=== PATIENT | male | born 1990 ===

== ENCOUNTER 2022-08-16 14:44 | Emergency (ER) | payer OTHER, SELFPAY ==
--- NOTE | 2022-08-16 14:46 | ED_ITS ---
HPI - General Adult General Chief complaint: Dental/Oral <Nanette Christianson CNP - Last Filed: 08/16/22 14:51> Stated complaint: toothache, ear pain <Nanette Christianson CNP - Last Filed: 08/16/22 14:51> Time Seen by Provider: 08/16/22 15:26 <Nanette Christianson CNP - Last Filed: 08/16/22 14:51> Source: patient <Kiara Riley NP - Last Filed: 08/16/22 15:58> Mode of arrival: ambulatory <Kiara Riley NP - Last Filed: 08/16/22 15:58> Limitations: language barrier <Kiara Riley NP - Last Filed: 08/16/22 15:58> History of Present Illness HPI narrative: 32-year-old male with no significant past medical history presents to [facility] emergency department with complaints of right tooth pain radiating into his right ear for over a month which he has been managing with over the counter analgesics. He reports pain increases with chewing. He states he has not seen a dentist for his tooth pain as he does not have dental insurance. He reports pain has not changed from the inception of his pain. He states that he He denies any throat swelling, hoarse voice, difficulty swallowing, foul taste in his mouth, fever or chills. <Kiara Riley NP - Last Filed: 08/16/22 15:58> Onset (ago): month(s) (1) <Kiara Riley NP - Last Filed: 08/16/22 15:58> Location: mouth <Kiara Riley NP - Last Filed: 08/16/22 15:58> Radiation: other (right ear) <Kiara Riley NP - Last Filed: 08/16/22 15:58> Severity: moderate <Kiara Riley NP - Last Filed: 08/16/22 15:58> Severity scale (1-10): 5 <Kiara Riley NP - Last Filed: 08/16/22 15:58> Quality: aching, dull and constant <ANABELA Pizarro Last Filed: 08/16/22 15:58> Pain Consistency: constant <Kiara Riley NP - Last Filed: 08/16/22 15:58> Relieving factors: medication <Kiara Riley NP - Last Filed: 08/16/22 15:58> Exacerbating factors: eating <Kiara Riley NP - Last Filed: 08/16/22 15:58> Associated symptoms: denies other symptoms <Kiara Riley NP - Last Filed: 08/16/22 15:58> Treatments prior to arrival: NSAID <Kiara Riley NP - Last Filed: 08/16/22 15:58> Related Data Allergies/adverse reactions: Allergies Allergy/AdvReac Type Severity Reaction Status Date / Time No Known Allergies Allergy Verified 08/16/22 14:50 <Nanette Christianson CNP - Last Filed: 08/16/22 14:51> Review of Systems Review of Systems: In addition to documented HPI above, the additional ROS was obtained: Constitutional: No Weight loss, No Fever, No Chills ENT/Mouth: No Ear Pain, No Nasal Congestion, No Sinus Pain, No Hoarseness, No sore throat, No Rhinorrhea, No Swallowing Difficulty Cardiovascular: No Chest Pain, No SOB Respiratory: No Cough, No Sputum, No Wheezing Gastrointestinal: No Nausea, No Vomiting, No Diarrhea, No Constipation, No Abdominal pain Genitourinary: No Dysuria, No Urinary Frequency, No Hematuria, No Urinary Incontinence/retention, No Urgency, No Flank Pain Musculoskeletal: No joint pain, No Myalgias, No Joint Swelling Skin: No Skin Lesions, No rash Neuro: No Weakness, No Numbness, No Paresthesias <iKara Riley NP - Last Filed: 08/16/22 15:58> Yes all other systems are reviewed and are negative <Kiara Riley NP - Last Filed: 08/16/22 15:58> [facility] Social History Social History: Social History Advance Directives: No Advance Directives Information Provided: No <Nanette Christianson CNP - Last Filed: 08/16/22 14:51> Physical Exam ED Vital Signs: Vital Signs - 24 hr 08/16/22 14:47 Temperature 97.0 F Pulse Rate 88 Respiratory Rate 18 Blood Pressure 127/83 Pulse Oximetry 99 Oxygen Delivery Method Room Air BMI result Body Mass Index 28.7 <Nanette Christianson, [employer] - Last Filed: 08/16/22 14:51> Vital Signs - 24 hr 08/16/22 14:47 Temperature 97.0 F Pulse Rate 88 Respiratory Rate 18 Blood Pressure 127/83 Pulse Oximetry 99 Oxygen Delivery Method Room Air BMI result Body Mass Index 28.7 <Kiara Riley NP - Last Filed: 08/16/22 15:58> Nursing notes and vital signs reviewed. GENERAL APPEARANCE: A&0 x 4, generally well appearing, no acute distress HENMT: Normal to inspection, atraumatic, face symmetrical. Normal external ears, nose, and oropharynx clear. Normal bilateral TMs. Dentition normal without obvious caries. No trismus EYE: PERRLA, EOM intact, structures appear normal NECK: Supple without lymphadenopathy. No stiffness or restricted ROM. CHEST: Normal to inspection HEART: Normal rate and regular rhythm, normal S1/S2, no M/R/G LUNGS: LS CTA, moving air well. Able to speak in complete sentences. No crackles, wheezes, or rhonchi auscultated ABDOMEN: Soft, nontender, nondistended. Normal bowel sounds noted BACK: No CVAT, no obvious deformity EXTREMITIES: Moving all extremities without difficulty. No cyanosis, clubbing, or edema. Normal capillary refill. NEUROLOGICAL: Alert and oriented, moving all 4 extremities with equal strength. CN not formally tested but appearing grossly intact. Observed to ambulate with normal gait. Cognition normal SKIN: Warm and dry without any lesions, rash, or visible sores PSYCH: Cooperative, normal affect, normal thought process <Kiara Riley NP - Last Filed: 08/16/22 15:58> Course Course Course Narrative: This is an RME: Additional HPI, ROS, PE not included below will be deferred to primary provider. Patient is a 32-year-old male presents emergency department for evaluation of right lower toothache, cheek swelling, and ear pain. Onset of symptoms 1 month ago. Was taking advil with minimal improvement. Does not have a dentist, stating no health insurance. Denies fevers, chills, drainage from the right ear, dysphagia, cough, chest pain, shortness of breath, neck pain. Plan: labs, CT soft tissue neck <Nanette Christianson CNP - Last Filed: 08/16/22 14:51> Medical Decision Making Medical Decision Making MDM Narrative: 32-year-old male with no significant past medical history presents to the emergency department with complaints of right tooth pain radiating into his right ear for over a month which he has been managing with over the counter analgesics. On exam, dentition normal without caries, no fluctuance noted at the gum line or in right cheek. No lymphadenopathy noted. Bilateral TMs normal. Pt recommended to follow up with a dentist for further evaluation of his toothache. No redness or drainage noted in mouth, posterior oropharynx normal, no tonsilar exudate. No sign of infection. Normal neck ROM without difficulty swallowing, clear voice. Pt educated that he does not appear infectious on physical exam at this time. Pt left ED prior to CT scan and discharge <ANABELA Pizarro ast Filed: 08/16/22 15:58> Lab Data Result Diagrams: 08/16/22 14:58 08/16/22 14:58 <Nanette Christianson CNP - Last Filed: 08/16/22 14:51> Labs: Lab Results 08/16/22 08/16/22 Range/Units 14:58 14:58 WBC 6.6 (4.8-10.8) X10*3/uL RBC 5.64 (4.60-5.80) X10*6/uL Hgb 16.7 (14.0-18.0) g/dl Hct 48.3 (42.0-52.0) % MCV 85.6 (80.0-98.0) fL MCH 29.6 (27.0-33.0) pg MCHC 34.6 (31.0-36.0) g/dl RDW 12.2 (11.0-16.0) % Plt Count 328 (160-400) X10*3/uL MPV 8.7 L (9.4-12.4) fL Immature Gran % (Auto) 0.2 (0.0-0.4) % Neut % (Auto) 53.5 (45-73) % Lymph % (Auto) 35.6 (20-40) % [place] % (Auto) 8.6 (2-11) % Eos % (Auto) 1.2 (0-4) % Baso % (Auto) 0.9 (0-2) % Lymph # (Auto) 2.4 (1.2-4.9) X10*3/uL [place] # (Auto) 0.6 (0.1-1.2) X10*3/uL Eos # (Auto) 0.1 (0.0-0.4) X10*3/uL Baso # (Auto) 0.1 (0.0-0.2) X10*3/uL Abs Immat Gran (auto) 0.01 (0.00-0.03) X10*3/uL Absolute Neuts (auto) 3.5 (2.0-8.3) x10*3/uL Absolute Nucleated RBC 0.000 (0.0-0.012) X10*3/uL Nucleated RBC % (auto) 0.0 (0.0-0.2) /100WBC Sodium 141 (135-145) mmol/L Potassium 4.2 (3.3-5.1) mmol/L Chloride 105 (96-108) mmol/L Carbon Dioxide 27 (22-29) mmol/L Anion Gap 13 (12-20) BUN 14 (9-16) mg/dL Creatinine 1.29 (0.5-1.4) mg/dL Estim Creat Clear Calc 92.2 Estimated GFR > 60 Random Glucose 89 (60-115) mg/dL Calcium 9.6 (8.4-10.2) mg/dL Total Bilirubin 0.7 (0.0-1.0) mg/dL AST 19 (5-37) U/L ALT 25 (0-40) U/L Alkaline Phosphatase 79 (39-117) U/L Total Protein 7.2 (6.5-8.0) g/dL Albumin 4.1 (3.5-5.0) g/dL <Nanette Christianson, MARQUIS - Last Filed: 08/16/22 14:51> Lab Results 01/22/23 01/22/23 Range/Units 14:58 14:58 WBC 6.6 (4.8-10.8) X10*3/uL RBC 5.64 (4.60-5.80) X10*6/uL Hgb 16.7 (14.0-18.0) g/dl Hct 48.3 (42.0-52.0) % MCV 85.6 (80.0-98.0) fL MCH 29.6 (27.0-33.0) pg MCHC 34.6 (31.0-36.0) g/dl RDW 12.2 (11.0-16.0) % Plt Count 328 (160-400) X10*3/uL MPV 8.7 L (9.4-12.4) fL Immature Gran % (Auto) 0.2 (0.0-0.4) % Neut % (Auto) 53.5 (45-73) % Lymph % (Auto) 35.6 (20-40) % [place] % (Auto) 8.6 (2-11) % Eos % (Auto) 1.2 (0-4) % Baso % (Auto) 0.9 (0-2) % Lymph # (Auto) 2.4 (1.2-4.9) X10*3/uL [place] # (Auto) 0.6 (0.1-1.2) X10*3/uL Eos # (Auto) 0.1 (0.0-0.4) X10*3/uL Baso # (Auto) 0.1 (0.0-0.2) X10*3/uL Abs Immat Gran (auto) 0.01 (0.00-0.03) X10*3/uL Absolute Neuts (auto) 3.5 (2.0-8.3) x10*3/uL Absolute Nucleated RBC 0.000 (0.0-0.012) X10*3/uL Nucleated RBC % (auto) 0.0 (0.0-0.2) /100WBC Sodium 141 (135-145) mmol/L Potassium 4.2 (3.3-5.1) mmol/L Chloride 105 (96-108) mmol/L Carbon Dioxide 27 (22-29) mmol/L Anion Gap 13 (12-20) BUN 14 (9-16) mg/dL Creatinine 1.29 (0.5-1.4) mg/dL Estim Creat Clear Calc 92.2 Estimated GFR > 60 Random Glucose 89 (60-115) mg/dL Calcium 9.6 (8.4-10.2) mg/dL Total Bilirubin 0.7 (0.0-1.0) mg/dL AST 19 (5-37) U/L ALT 25 (0-40) U/L Alkaline Phosphatase 79 (39-117) U/L Total Protein 7.2 (6.5-8.0) g/dL Albumin 4.1 (3.5-5.0) g/dL <Kiara Riley NP - Last Filed: 08/16/22 15:58> Discharge Plan Discharge Clinical Impression: Toothache <Nanette Christianson CNP - Last Filed: 08/16/22 14:51> Patient Disposition: Elopement <Nanette Christianson CNP - Last Filed: 08/16/22 14:51> Interventions: ED Discharge Assessment Last Done: 08/16/22 15:50 <Nanette Christianson CNP - Last Filed: 08/16/22 14:51> Discharge Date/Time: 08/16/22 15:51 <Nanette Christianson CNP - Last Filed: 08/16/22 14:51>
[2022-08-16 14:47] VITALS: BP 127/83; PULSE 88; RESP 18; TEMP 36.1; O2SAT 99; BMI 28.7
[2022-08-16 15:04] LABS: MANUAL DIFF FLAG NO
[2022-08-16 15:06] LABS: Basophils Absolute Auto 0.1 X10*3/uL (0.0-0.2); Basophils Percent Auto 0.9 % (0-2); Eosinophils Absolute Auto 0.1 X10*3/uL (0.0-0.4); Eosinophils Percent Auto 1.2 % (0-4); Hematocrit 48.3 % (42.0-52.0); Hemoglobin 16.7 g/dl (14.0-18.0); Imm Gran Abs Auto 0.01 X10*3/uL (0.00-0.03); Imm Gran Pct Auto 0.2 % (0.0-0.4); Lymphocytes Absolute Auto 2.4 X10*3/uL (1.2-4.9); Lymphocytes Percent Auto 35.6 % (20-40); Mean Corpuscular HGB Conc 34.6 g/dl (31.0-36.0); Mean Corpuscular Hemoglobin 29.6 pg (27.0-33.0); Mean Corpuscular Volume 85.6 fL (80.0-98.0); Mean Platelet Volume 8.7 fL (9.4-12.4); Monocytes Absolute Auto 0.6 X10*3/uL (0.1-1.2); Monocytes Percent Auto 8.6 % (2-11); Neutrophils Absolute Auto 3.5 x10*3/uL (2.0-8.3); Neutrophils Percent Auto 53.5 % (45-73); Platelet Count 328 X10*3/uL (160-400); Red Blood Count 5.64 X10*6/uL (4.60-5.80); Red Cell Distribution Width 12.2 % (11.0-16.0); White Blood Count 6.6 X10*3/uL (4.8-10.8)
[2022-08-16 15:20] LABS: Alanine Aminotransferase 25 U/L (0-40); Albumin Level 4.1 g/dL (3.5-5.0); Alkaline Phosphatase 79 U/L (39-117); Anion Gap 13 (12-20); Aspartate Amino Transferase 19 U/L (5-37); Bilirubin Total 0.7 mg/dL (0.0-1.0); Blood Urea Nitrogen 14 mg/dL (9-16); Calcium 9.6 mg/dL (8.4-10.2); Carbon Dioxide 27 mmol/L (22-29); Chloride 105 mmol/L (96-108); Creatinine Clr Calc Pharmacy 92.2; Estimated Glomerular Filt Rate > 60; Glucose Random 89 mg/dL (60-115); Potassium 4.2 mmol/L (3.3-5.1); Sodium 141 mmol/L (135-145); Total Protein 7.2 g/dL (6.5-8.0)
== END 2022-08-16 15:51 | disposition left against medical advice (07) ==
PROVIDERS: Nurse Practitioner Family; Emergency Provider Emergency Medicine
DX: K08.89 Other specified disorders of teeth and supporting structures (principal); H92.01 Otalgia, right ear; Z79.899 Other long term (current) drug therapy
CPT/HCPCS: 36415; 80053; 85025; 99282

== ENCOUNTER 2022-12-09 11:31 | Emergency (ER) | payer OTHER, SELFPAY ==
--- NOTE | 2022-12-09 | ECG_ITS ---
Test Reason : CHEST PAIN Blood Pressure : / mmHG Vent. Rate : 105 BPM Atrial Rate : 105 BPM P-R Int : 124 ms QRS Dur : 086 ms QT Int : 314 ms P-R-T Axes : 051 046 024 degrees QTc Int : 415 ms Sinus tachycardia Otherwise normal ECG No previous ECGs available Referred By: Generic ED Physician Electronically Signed By:Art Boss
--- NOTE | ~2022-12-09 | XR_ITS ---
EXAMINATION: XR CHEST CLINICAL INFORMATION: Shortness of breath and cough COMPARISON: None available. TECHNIQUE: 2 views of the chest were obtained. FINDINGS: No significant abnormality is noted involving the heart, lungs, mediastinum, bony thorax or soft tissues. XR/XR chest 2V IMPRESSION: No acute disease.
[2022-12-09 11:41] VITALS: BP 129/93; PULSE 104; RESP 18; TEMP 37.4; O2SAT 99; BMI 28.9
--- NOTE | 2022-12-09 11:42 | ED_ITS ---
HPI - SOB/Dyspnea General Chief Complaint: Dyspnea <KELLEE Orellana - Last Filed: 12/09/22 11:49> Stated Complaint: SOB/ Chest pain <KELLEE Orellana - Last Filed: 12/09/22 11:49> Time Seen by Provider: 12/09/22 12:30 <KELLEE Orellana - Last Filed: 12/09/22 11:49> Source: patient and family <Ta Farris - Last Filed: 12/09/22 14:02> Limitations: no limitations <Ta Farris - Last Filed: 12/09/22 14:02> History of Present Illness HPI Narrative: 32-year-old male with 3 day history of cough congestion and chest wall pain after coughing. Positive sick contacts at home from kids. No recent travel history. Patient denies tobacco history and takes no prescribed medications at this time. Cough is productive for some clear sputum. Symptoms have been worsening over the past 24 hours. No similar episodes in the past. Patient also has a slight sore throat with swallowing. No other complaints at this time. <Ta Farris - Last Filed: 12/09/22 14:02> Related Data Allergies/Adverse Reactions: Allergies Allergy/AdvReac Type Severity Reaction Status Date / Time No Known Allergies Allergy Verified 12/09/22 11:45 <KELLEE Orellana - Last Filed: 12/09/22 11:49> Review of Systems Review of Systems: General: Question fever, no chills Ophthalmology: No vision changes, no discharge ENT: Positive sore throat no ear pain Cardiovascular: Chest wall pain status post coughing no peripheral edema positive shortness of breath with cough Respiratory: Positive shortness of breath, cough, sputum production Muscle skeletal: No malaise, no back pain, no neck pain, no extremity pain GI: No abdominal pain: no nausea vomiting, no diarrhea Psychiatric: No depression, no suicidal ideation, no homicidal ideation Skin: No rash Hematology: No bleeding, no bruising <Ta Farris - Last Filed: 12/09/22 14:02> PMFSH Past Medical History Source: obtained from family <Ta Farris - Last Filed: 12/09/22 14:02> Social History Social History: Social History Advance Directives: No Advance Directives Information Provided: No <KELLEE Orellana - Last Filed: 12/09/22 11:49> Physical Exam Vital Signs: Vital Signs: Last Vital Signs Temp 99.3 F 12/09/22 11:41 Pulse 104 H 12/09/22 11:41 Resp 18 12/09/22 11:41 BP 129/93 H 12/09/22 11:41 Pulse Ox 99 12/09/22 11:41 O2 Del Method Room Air 12/09/22 11:41 BMI result Body Mass Index 28.9 <KELLEE Orellana - Last Filed: 12/09/22 11:49> Vital Signs: Last Vital Signs Temp 99.3 F 12/09/22 11:41 Pulse 104 H 12/09/22 11:41 Resp 18 12/09/22 11:41 BP 129/93 H 12/09/22 11:41 Pulse Ox 99 12/09/22 11:41 O2 Del Method Room Air 12/09/22 11:41 BMI result Body Mass Index 28.9 <Ta Farris - Last Filed: 12/09/22 14:02> General appearance: Awake, alert, cooperative, in no acute distress Skin: Warm, dry, no rash Eyes: PERRL, EOMI, no icterus ENT: Slight erythema noted uvula midline no peritonsillar abscess or exudate noted Neck: Soft supple full range of motion Pulmonary: Breath sounds coarse bilaterally Cardiovascular: Regular rate and rhythm, no murmurs and rubs Abdomen: Soft nontender, no rebound or guarding, positive bowel sounds Extremities: No deformity, nontender, no peripheral edema noted Neuro: Alert oriented x3, no focal deficit Psych: Normal affect <Ta Farris - Last Filed: 12/09/22 14:02> Course Course Course Narrative: RME 32yo [place]ian speaking male with SOB, chest pain, headache, fevers for the last three days. Chest pain is worse with coughing. His little kids at home were sick with a cough recently. Slightly tachycardic in triage with low grade fever, but sats high 90s, and lungs are clear on exam. Plan: EKG already done, will get chest x-ray and viral swabs. <KELLEE Orellana - Last Filed: 12/09/22 11:49> Medications Administered Discontinued Medications Generic Name Dose Route Start Last Admin Trade Name Freq PRN Reason Stop Dose Admin Benzonatate 100 mg 12/09/22 12:34 12/09/22 12:43 Benzonatate 100 Mg Capsule PO 12/09/22 12:35 100 mg ONCE ONE Administration Ibuprofen 600 mg 12/09/22 12:34 12/09/22 12:43 Ibuprofen 600 Mg Tablet PO 12/09/22 12:35 600 mg ONCE ONE Administration Prednisone 40 mg 12/09/22 12:34 12/09/22 12:43 Prednisone 20 Mg Tablet PO 12/09/22 12:35 40 mg ONCE ONE Administration <KELLEE Orellana - Last Filed: 12/09/22 11:49> Medications Administered Discontinued Medications Generic Name Dose Route Start Last Admin Trade Name Freq PRN Reason Stop Dose Admin Benzonatate 100 mg 12/09/22 12:34 12/09/22 12:43 Benzonatate 100 Mg Capsule PO 12/09/22 12:35 100 mg ONCE ONE Administration Ibuprofen 600 mg 12/09/22 12:34 12/09/22 12:43 Ibuprofen 600 Mg Tablet PO 12/09/22 12:35 600 mg ONCE ONE Administration Prednisone 40 mg 12/09/22 12:34 12/09/22 12:43 Prednisone 20 Mg Tablet PO 12/09/22 12:35 40 mg ONCE ONE Administration <Ta Farris - Last Filed: 12/09/22 14:02> Medical Decision Making Medical Decision Making MDM Narrative: Pneumonia Acute bronchitis Viral URI COVID-19 Reactive airway disease Pharyngitis Vital signs are otherwise stable 32-year-old male with positive sick contacts at home chest x-ray respiratory swab is pending at this time. ECG performed in triage and a rate of 105 normal sinus rhythm no ST elevation 14:00 chest chest x-rays negative patient tested positive for influenza B symptoms have been greater than 3 days symptomatic relief only at this time <Ta Winchester Last Filed: 12/09/22 14:02> Lab Data Labs: Lab Results 12/09/22 Range/Units 12:01 Influenza Type A (PCR) NEGATIVE (Negative) Influenza Type B (PCR) POSITIVE A (Negative) RSV RNA Qual (PCR) NEGATIVE (Negative) SARS-CoV-2 RNA (RT-PCR) NEGATIVE (Negative) <KELLEE Orellana - Last Filed: 12/09/22 11:49> Lab Results 12/09/22 Range/Units 12:01 Influenza Type A (PCR) NEGATIVE (Negative) Influenza Type B (PCR) POSITIVE A (Negative) RSV RNA Qual (PCR) NEGATIVE (Negative) SARS-CoV-2 RNA (RT-PCR) NEGATIVE (Negative) <Ta Farris - Last Filed: 12/09/22 14:02> Radiology Impression Discussion of test interpretation with radiology: I have reviewed the radiologist's reading. <Ta Farris - Last Filed: 12/09/22 14:02> Radiologist Impression: [address] [address] XRay Report Signed Patient: Charanjit Payne MR#: [id number] : 1990 Acct:[id number] Age/Sex: 32 / M ADM Date: 12/09/22 Loc: .ED Attending Dr: Ordering Physician: Kaitlynn Naik Date of Service: 12/09/22 Procedure(s): XR chest 2V Accession Number(s): [id number] cc: Kaitlynn Naik~ EXAMINATION: XR CHEST CLINICAL INFORMATION: Shortness of breath and cough COMPARISON: None available. TECHNIQUE: 2 views of the chest were obtained. FINDINGS: No significant abnormality is noted involving the heart, lungs, mediastinum, bony thorax or soft tissues. XR/XR chest 2V IMPRESSION: No acute disease. Dictated By: Yoseph Valente MD Signed By: <Electronically signed by Yoseph Valente MD in [place]> 12/09/22 1343 DD/ 1210 TD/TT:? Elevator Technician: DANNI <Ta Farris - Last Filed: 12/09/22 14:02> Discharge Plan Discharge Clinical Impression: Influenza B <KELLEE Orellana - Last Filed: 12/09/22 11:49> Patient Disposition: Home, Self-Care <KELLEE rOellana - Last Filed: 12/09/22 11:49> Instructions: Influenza (ED) <KELLEE Orellana - Last Filed: 12/09/22 11:49> Additional Instructions: He tested positive for influenza which is a virus Increase fluids rest Tylenol Motrin for fever and body aches Return if symptoms worsen chest x-ray was normal COVID-19 test is negative <KELLEE Orellana - Last Filed: 12/09/22 11:49> Stand Alone Forms: Work/School Release <KELLEE Orellana - Last Filed: 12/09/22 11:49>
[2022-12-09] MEDS: Benzonatate 100 MG CAPSULE PO (12:43)
[2022-12-09] MEDS: predniSONE 20 MG TABLET 40 MG PO (12:43)
[2022-12-09] MEDS: Ibuprofen 600 MG TABLET PO (12:43)
[2022-12-09 13:03] LABS: Influenza A PCR NEGATIVE (Negative); Influenza B PCR POSITIVE (Negative); Resp Syncy Virus RNA Qual PCR NEGATIVE (Negative); SARS COV2 PCR INHOUSE NEGATIVE (Negative)
== END 2022-12-09 14:13 | disposition home or self-care (01) ==
PROVIDERS: Physician Assistant; Emergency Provider Emergency Medicine
DX: J10.1 Influenza due to other identified influenza virus with other respiratory manifestations (principal); R06.02 Shortness of breath; R05.9 Cough, unspecified; R07.89 Other chest pain; R51.9 Headache, unspecified; R50.9 Fever, unspecified; Z20.822 Contact with and (suspected) exposure to COVID-19; Z20.828 Contact with and (suspected) exposure to other viral communicable diseases; Z79.899 Other long term (current) drug therapy
CPT/HCPCS: 0241U; 71046; 93005; 99283

== ENCOUNTER 2023-11-02 03:25 | Emergency (ER) | payer SELFPAY ==
[2023-11-02 03:38] VITALS: BP 123/101; PULSE 73; RESP 20; TEMP 36.8; O2SAT 97; BMI 29.6
== END 2023-11-02 05:48 | disposition left against medical advice (07) ==
PROVIDERS: Emergency Provider Emergency Medicine
DX: K08.89 Other specified disorders of teeth and supporting structures (principal); Z53.21 Procedure and treatment not carried out due to patient leaving prior to being seen by health care provider
CPT/HCPCS: 99281